=== PATIENT | female | born 2000 | race Hispanic/Latino ===

== ENCOUNTER 2023-04-13 11:30 | Emergency (ER) | payer OTHER ==
[~2023-04-13] VITALS: Ht 162.6 cm; Wt 67.9 kg
[2023-04-13] MEDS ORDERED: VALACYCLOVIR1000 MG PO (13:17)
[2023-04-13] MEDS ORDERED: HYDROCODON-ACE1 EA10 PO (13:17)
[2023-04-13 14:03] VITALS: BP 120/71
== END 2023-04-13 14:03 | disposition home or self-care (01) ==
LOC: ED 11:30
DX: A60.00 Herpesviral infection of urogenital system, unspecified (principal)
CPT/HCPCS: 87529

== ENCOUNTER 2023-04-22 22:16 | Emergency (ER) | payer OTHER ==
[~2023-04-22] VITALS: Ht 162.6 cm; Wt 68.0 kg
--- OUTSIDE RECORDS SUMMARY | ~2023-04-22 | XMS | Continuity of Care Document ---
Demographics + + + | Address | [address] | | | [place] [address] | + + + | Preferred Language | Unknown | + + + | Marital Status | Never | + + + | Confucianism Affiliation | Unknown | + + + | Race | Unknown | + + + | Ethnic Group | or | + + + Author + + + | Author | [facility] | + + + | Organization | [facility] | + + + | Address | [address] | | | [place] [address] | + + + | Phone | | + + + Care Team Providers + + + + | Care Manager Health Name | Role | Phone | + + + + Unavailable | Unavailable | + + + + Unavailable | Unavailable | + + + + Allergies No information. Encounters No information. Functional Status No information. Immunizations No information. Medications + + + + | date | description | facility | + + + + | 2023-04-13 00:00 | VALACYCLOVIR HCL | [facility] | + + + + | 2023-04-13 00:00 | HYDROCODONE | [facility] | | | BIT/ACETAMINOPHEN | | + + + + Problems + + + + | date | description | facility | + + + + | 2023-04-13 00:00 | Genital herpes simplex | [facility] | + + + + | 2023-04-13 11:32 | HERPESVIRAL INFECTION OF | [facility] | | | UROGENITAL SYSTEM, UNSPEC | | + + + + | 2023-04-13 11:32 | Rash and other nonspecific | [facility] | | | skin eruption | | + + + + Procedures No information. Results/Labs No information. Social History + + + + | date | description | facility | + + + + | 2023-04-13 00:00 | Unknown if ever smoked | [facility] | + + + + Vital Signs + + + +---------+ | date | measurement | value | units | + + + +---------+ | 2023-04-13 00:00 | BMI | 25.7 | kg/m2 | + + + +---------+ | 2023-04-13 00:00 | BP_diastolic | 71 | mmHg | + + + +---------+ | 2023-04-13 00:00 | BP_systolic | 120 | mmHg | + + + +---------+ | 2023-04-13 00:00 | heart_rate | 71 | /min | + + + +---------+ | 2023-04-13 00:00 | height_metric | 162.56 | cm | + + + +---------+ | 2023-04-13 00:00 | height_standard | 64 | in | + + + +---------+ | 2023-04-13 00:00 | o2_saturation | 100 | % | + + + +---------+ | 2023-04-13 00:00 | respiration_rate | 16 | /min | + + + +---------+ | 2023-04-13 00:00 | temperature_metric | 36.39 | C | | | | | | + + + +---------+ | 2023-04-13 00:00 | | 97.5 | F | | | temperature_standar | | | | | d | | | + + + +---------+ | 2023-04-13 00:00 | weight_metric | 67.9 | kg | + + + +---------+ | 2023-04-13 00:00 | weight_standard | 149.69 | lb | + + + +---------+"
--- OUTSIDE RECORDS SUMMARY | ~2023-04-22 | XMS | Continuity of Care Document ---
Demographics + + + | Address | [address] | | | [place] [address] | + + + | Preferred Language | Unknown | + + + | Marital Status | Never | + + + | Shinto Affiliation | Unknown | + + + | Race | Unknown | + + + | Ethnic Group | or | + + + Author + + + | Author | [facility] | + + + | Organization | [facility] | + + + | Address | [address] | | | [place] [address] | + + + | Phone | | + + + Care Team Providers + + + + | Care Tail End Rider Name | Role | Phone | + + + + Unavailable | Unavailable | + + + + Unavailable | Unavailable | + + + + Allergies No information. Encounters No information. Functional Status No information. Immunizations No information. Medications + + + + | date | description | facility | + + + + | 2023-04-13 00:00 | VALACYCLOVIR HCL | [facility] | + + + + | 2023-04-13 00:00 | HYDROCODONE | [facility] | | | BIT/ACETAMINOPHEN | | + + + + Problems + + + + | date | description | facility | + + + + | 2023-04-13 00:00 | Genital herpes simplex | [facility] | + + + + | [...] | Unknown if ever smoked | [facility] | + + + + Vital Signs [...]
[~2023-04-22 22:16] MED LIST: HYDROCODON-ACE1 EA10 PO; VALACYCLOVIR1000 MG PO
--- OUTSIDE RECORDS SUMMARY | 2023-04-22 22:19 | XMS ---
PreManage Notification: DREAD COTA [employer] Events No recent Security Events currently on file CRITERIA MET - [facility] - 2 Visits in 30 Days CARE PROVIDERS -Ayleen- Dentist: Share Holder Replaced By [facility] PHONE: [phone] Romulo has no Care Guidelines for this patient. EHany VISIT COUNT (12 MO.) 2 [facility] TOTAL 2 NOTE: Visits indicate total known visits. ED/UCC VISIT TRACKING (12 MO.) 04/22/2023 22:[address] [facility] [place] TYPE: Emergency COMPLAINT: - SKIN PROBLEM 04/13/2023 11:[address] [facility] [place] TYPE: Emergency COMPLAINT: - VAGINAL PAIN DIAGNOSES: - Herpesviral infection of urogenital system, unspecified - Rash and other nonspecific skin eruption INPATIENT VISIT TRACKING (12 MO.) No inpatient visits to display in this time frame [email or web address]
[2023-04-22] MEDS ORDERED: DOXYCYCLINE HY100 MG PO (22:44)
[2023-04-22 22:53] VITALS: BP 117/71
[2023-04-23] MEDS ORDERED: AMOX TR-K CLV1 EAC1 PO (23:17)
[2023-04-23] MEDS ORDERED: BACTRIM DS TAB1 EACH PO (23:17)
== END 2023-04-22 22:53 | disposition home or self-care (01) ==
LOC: ED 22:16
DX: L02.511 Cutaneous abscess of right hand (principal)
CPT/HCPCS: 10060; 87070; 87205; 99283-25

== ENCOUNTER 2023-04-23 22:24 | Emergency (ER) | payer OTHER ==
[~2023-04-23] VITALS: Ht 162.6 cm; Wt 67.0 kg
--- OUTSIDE RECORDS SUMMARY | ~2023-04-23 | XMS | Continuity of Care Document ---
Demographics + + + | Address | [address] | | | [place] [address] | + + + | Preferred Language | Unknown | + + + | Marital Status | Never | + + + | Voodoo Affiliation | Unknown | + + + | Race | Unknown | + + + | Ethnic Group | or | + + + Author + + + | Author | [facility] | + + + | Organization | [facility] | + + + | Address | [address] | | | [place] [address] | + + + | Phone | | + + + Care Team Providers + + + + | Care Psychologist Developmental Name | Role | Phone | + + + + Unavailable | Unavailable | + + + + Unavailable | Unavailable | + + + + Allergies and Intolerances + + + + + + | date | description | facility | reaction | severity | + + + + + + | (no date) | No Known | [facility] | (no reaction) | (no severity) | | | Allergies | | | | + + + + + + Encounters No information. Functional Status No information. Immunizations No information. Medications + + + + | date | description | facility | + + + + | 2023-04-22 00:00 | DOXYCYCLINE HYCLATE | [facility] | + + + + | 2023-04-13 00:00 | VALACYCLOVIR HCL | [facility] | + + + + | 2023-04-13 00:00 | HYDROCODONE | [facility] | | | BIT/ACETAMINOPHEN | | + + + + Problems + + + + | date | description | facility | + + + + | 2023-04-13 00:00 | Genital herpes simplex | [facility] | + + + + | 2023-04-13 11:32 | HERPESVIRAL INFECTION OF | [facility] | | | UROGENITAL SYSTEM, UNSPEC | | + + + + | 2023-04-13 11:32 | Rash and other nonspecific | [facility] | | | skin eruption | | + + + + | 2023-04-22 00:00 | Abscess of right hand | [facility] | | | excluding fingers and thumb | | | | | | + + + + Procedures No information. Results/Labs +--------+--------+ +---------+--------+---------+ | test | date | facility | value | unit | notes | +--------+--------+ +---------+--------+---------+ + + | Result panel 1 | + + + + + + + + + | | 2023-04-13 [facility] | (missing[facility] | (missing) | | (unavailable | [facility] | | | | + + + + + + + + + | Result panel 2 | + + + + + + + + + | | 2023-04-13 | [facility] Detected | (missing) | (missing) | | (unavailable | [facility]:07 [facility] | | | | + + + + + + + + + | Result panel 3 | + + + + + + + + + | | 2023-04-13 | [facility] | Not | (missing) | (missing) | | (unavailable | [facility]15:07 [facility] Detected | | | | ) | | [facility] | | | | + + + + + + + Social History + + + + | date | description | facility | + + + + | 2023-04-13 00:00 | Unknown if ever smoked | [facility] | + + + + | 2023-04-22 00:00 | Unknown if ever smoked | [facility] | + + + + Vital Signs [...] 149.69 | lb | + + + +---------+ | 2023-04-22 00:00 | BMI | 25.7 | kg/m2 | + + + +---------+ | 2023-04-22 00:00 | BP_diastolic | 71 | mmHg | + + + +---------+ | 2023-04-22 00:00 | BP_systolic | 117 | mmHg | + + + +---------+ | 2023-04-22 00:00 | heart_rate | 87 | /min | + + + +---------+ | 2023-04-22 00:00 | height_metric | 162.56 | cm | + + + +---------+ | 2023-04-22 00:00 | height_standard | 64 | in | + + + +---------+ | 2023-04-22 00:00 | o2_saturation | 100 | % | + + + +---------+ | 2023-04-22 00:00 | respiration_rate | 14 | /min | + + + +---------+ | 2023-04-22 00:00 | temperature_metric | 36.61 | C | | | | | | + + + +---------+ | 2023-04-22 00:00 | | 97.9 | F | | | temperature_standar | | | | | d | | | + + + +---------+ | 2023-04-22 00:00 | weight_metric | 68 | kg | + + + +---------+ | 2023-04-22 00:00 | weight_standard | 149.91 | lb | + + + +---------+"
--- OUTSIDE RECORDS SUMMARY | ~2023-04-23 | XMS | Continuity of Care Document ---
Demographics + + + | Address | [address] | | | [place] [address] | + + + | Preferred Language | Unknown | + + + | Marital Status | Never | + + + | Episcopal Affiliation | Unknown | + + + | Race | Unknown | + + + | Ethnic Group | or | + + + Author + + + | Author | [facility] | + + + | Organization | [facility] | + + + | Address | [address] | | | [place] [address] | + + + | Phone | | + + + Care Team Providers + + + + | Care Ultrasonographer Name | Role | Phone | + [...] | 2023-04-22 00:00 | DOXYCYCLINE HYCLATE | [facility] | + + + + | 2023-04-13 00:00 | VALACYCLOVIR HCL | [facility] | + + + + | 2023-04-13 00:00 | HYDROCODONE | [facility] | | | BIT/ACETAMINOPHEN | | + + + + Problems + + + + | date | description | facility | + + + + | 2023-04-13 00:00 | Genital herpes simplex | [facility] | + + + + | 2023-04-13 11:32 | HERPESVIRAL INFECTION OF | [facility] | | | UROGENITAL SYSTEM, UNSPEC | | + + + + | 2023-04-13 11:32 | Rash and other nonspecific | [facility] | | | skin eruption | | + + + + | 2023-04-22 00:00 | Abscess of right hand | [facility] | | | excluding fingers [...] 00:00 | Unknown if ever smoked | [facility] | + + + + | 2023-04-22 00:00 | Unknown if ever smoked | [facility] | + + + + [...]
[~2023-04-23 22:24] MED LIST changes: +DOXYCYCLINE HY100 MG PO
--- OUTSIDE RECORDS SUMMARY | 2023-04-23 22:27 | XMS ---
PreManage Notification: DREAD COTA Security [employer] Events No recent Security Events currently on file CRITERIA MET - [facility] - 2 Visits in 30 Days CARE PROVIDERS -Ayleen- Dentist: [facility] PHONE: [phone] Romulo has no Care Guidelines for this patient. EHany VISIT COUNT (12 MO.) 3 [facility] TOTAL 3 NOTE: Visits indicate total known visits. ED/UCC VISIT TRACKING (12 MO.) 04/23/2023 22:25 [facility] TYPE: Emergency COMPLAINT: - BUMP ON HER HAND 04/22/2023 22:17 [facility] TYPE: Emergency COMPLAINT: - SKIN PROBLEM 04/13/2023 11:32 [facility] TYPE[facility] Emergency COMPLAINT: - VAGINAL PAIN DIAGNOSES: - Herpesviral infection of urogenital system, unspecified - Rash and other nonspecific skin eruption INPATIENT VISIT TRACKING (12 MO.) No inpatient visits to display in this time frame [email or web address]
[2023-04-23] MEDS ORDERED: AMOX TR-K CLV1 EAC1 PO (23:17)
[2023-04-23] MEDS ORDERED: BACTRIM DS TAB1 EACH PO (23:17)
[2023-04-23 23:26] VITALS: BP 105/83
== END 2023-04-23 23:26 | disposition home or self-care (01) ==
LOC: ED 22:24
DX: L02.511 Cutaneous abscess of right hand (principal); Z79.899 Other long term (current) drug therapy
CPT/HCPCS: 99283; A9270

== ENCOUNTER 2024-02-01 00:36 | Inpatient (IN) | payer OTHER ==
[~2024-02-01 00:36] MED LIST changes: +AMOX TR-K CLV1 EAC1 PO; +BACTRIM DS TAB1 EACH PO; +CALCIUM CARBONATE 500 MG CHEW PO PRN; +LACTATED RINGER'S 1,000 ML IV SCH; +MAGNESIUM HYDROXIDE/AL HYDROX 30 ML CUP PO PRN; +PENICILLIN G POTASSIUM 5 MUNITS/110 ML PIGGYBACK IV ONE; +miSOPROStoL 25 MCG TAB PV SCH
[2024-02-01] MEDS ORDERED: OXYTOCIN/DEXTROSE 5% 20 UNITS/100 ML BAG IV SCH (01:45)
[2024-02-01] MEDS ORDERED: CALCIUM CARBONATE 500 MG CHEW PO PRN (01:45)
[2024-02-01] MEDS ORDERED: MAGNESIUM HYDROXIDE/AL HYDROX 30 ML CUP PO PRN (01:45)
[2024-02-01 01:47] LABS: HEMATOCRIT 34.2 % (35.0-50.0); HEMOGLOBIN 11.9 g/dL (12.0-18.0); MCH 31.2 (27-36); MCHC 34.8 g/dl (30-36); MCV 89.6 fl (81-99); RBC 3.82 M/ul (4.3-5.7); RDW 15.2 (10.5-15.0)
[2024-02-01 02:18] LABS: ABO A; ANTIBODY SCREEN NEGATIVE; RH POSITIVE
[2024-02-01] MEDS ORDERED: PENICILLIN G POTASSIUM 2.5 MUNITS in DEXTROSE 5% 100 ML IV SCH ×3 (04:00→18:00)
[2024-02-01] MEDS ORDERED: miSOPROStoL 25 MCG TAB PV SCH (08:00)
[2024-02-01] MEDS ORDERED: PENICILLIN G POTASSIUM 5 MUNITS/110 ML PIGGYBACK IV ONE ×2 (08:15→13:45)
[2024-02-01 08:17] VITALS: BP 132/87
[2024-02-01 09:42] LABS: AMPHETAMINES, URINE NEGATIVE (NEGATIVE); BARBITURATES, URINE NEGATIVE (NEGATIVE); BENZODIAZEPINE, URINE NEGATIVE (NEGATIVE); BUPRENORPHINE, URINE NEGATIVE (NEGATIVE); CANNABINOID, URINE POSITIVE (NEGATIVE); COCAINE, URINE NEGATIVE (NEGATIVE); ECSTASY, URINE NEGATIVE (NEGATIVE); FENTANYL, URINE NEGATIVE (NEGATIVE); METHADONE, URINE NEGATIVE (NEGATIVE); OPIATES, URINE NEGATIVE (NEGATIVE); OXYCODONE, URINE NEGATIVE (NEGATIVE); PHENCYCLIDINE, URINE NEGATIVE (NEGATIVE)
--- NOTE | 2024-02-01 15:41 | PR ---
[facility] [address] [place], [place] [address] Signed Progress Notes IP Datetime Report Generated by CPN: 02/01/2024 15:41 PROGRESS NOTES: [id number] Impression: Normal Progression of Labor; Reassuring Heart Rate Procedures: Artificial ROM; Sterile Vag Exam Plan: Continue Present Management VITAL SIGNS: [id number] Vital Signs: Reviewed; Within Normal Limits EXAM: [id number] Dilatation: 2.5 Effacement: 50 Station: -3 Contractions: q 1-2 MEMBRANES: [id number] Pooling: Negative Comments: Pt seen and examined. Doing well. Contractions 1-2 minutes mild. Discussed AROM and pt desires. AROM easily performed for moderate amount of clear fluid. FETUS A: [id number] FHR Baseline: 145 Variability: Moderate 6-25bpm Decelerations: None FHR Category: Category I Presentation: Vertex Comments on Fetus A: No evidence of metabolic acidosis FETUS B: [id number] Signing Physician: Liliane Arora DO Copies: ~ *Electronically Signed* 02/01/24 1541 LILIANE ARORA (ELENI) DO PATIENT NAME: VIRELAS KOKO,DREAD PROGRESS NOTE DATE OF : 00 PHYSICIAN: LILIANE ARORA) DO RPT #: [id number] REPORT IS CONFIDENTIAL AND NOT TO BE RELEASED WITHOUT AUTHORIZATION
--- NOTE | 2024-02-01 18:28 | PR ---
[facility] [address] [place], [place] [address] Signed Progress Notes IP Datetime Report Generated by CPN: 02/01/2024 18:28 PROGRESS NOTES: [id number] Impression: Normal Progression of Labor; Reassuring Heart Rate Procedures: Sterile Vag Exam Plan: Continue Present Management Other Plans: PreE Labs VITAL SIGNS: [id number] Vital Signs: Reviewed; Within Normal Limits EXAM: [id number] Dilatation: 3.0 Effacement: 70 Station: -3 Contractions: q 1-3 min MEMBRANES: [id number] Pooling: Negative Comments: Pt seen and examined. Contractions increasing in frequency and intensity. Leaking clear fluid. Mildly elevated BPs. Will check preE labs. Continue expectant management. FETUS A: [id number] FHR Baseline: 145 Variability: Moderate 6-25bpm Decelerations: None FHR Category: Category I Presentation: Vertex Comments on Fetus A: No evidence of metabolic acidosis FETUS B: [id number] Signing Physician: Liliane Arora DO Copies: ~ *Electronically Signed* 02/01/24 1828 LILIANE ARORA (ELENI) DO PATIENT NAME: DREAD COTA PROGRESS NOTE DATE OF : 00 PHYSICIAN: LILIANE ARORA (ELENI) DO RPT #: [id number] REPORT IS CONFIDENTIAL AND NOT TO BE RELEASED WITHOUT AUTHORIZATION
[2024-02-01 19:35] LABS: HEMATOCRIT 34.4 % (35.0-50.0); HEMOGLOBIN 11.3 g/dL (12.0-18.0); MCH 29.9 (27-36); MCHC 32.9 g/dl (30-36); MCV 90.8 fl (81-99); RBC 3.79 M/ul (4.3-5.7); RDW 15.4 (10.5-15.0)
[2024-02-01 19:49] LABS: ALBUMIN 2.5 g/dL (3.4-5.0); ALBUMIN/GLOBULIN RATIO 0.68 (1.1-2.4); ANION GAP 11.6 (7-21); BILIRUBIN, TOTAL 0.2 ng/dL (0.2-1.0); BUN/CREATININE RATIO 15.38 (6.0-28.6); CALCIUM 8.6 mg/dL (8.5-10.1); CREATININE, SERUM 0.65 mg/dL (0.55-1.02); POTASSIUM 3.6 mmol/L (3.5-5.1); PROTEIN, TOTAL 6.2 g/dL (6.4-8.2)
[2024-02-01 19:58] LABS: CREATININE, RANDOM URINE 177.59 mg/dL (NOT ESTABLISHED); PROTEIN/CREATININE RATIO 0.27 mg/mg (0.010-0.107)
[2024-02-02] MEDS ORDERED: OXYTOCIN/0.9 % SODIUM CHLORIDE 500 ML IV SCH (03:15)
--- NOTE | 2024-02-02 07:29 | PR ---
[facility] [address] [place], [place] [address] Signed Progress Notes IP Datetime Report Generated by CPN: 02/02/2024 07:28 PROGRESS NOTES: [id number] Impression: Normal Progression of Labor; Reassuring Heart Rate Procedures: Intrauterine Pressure Catheter; Scalp Electrode; Sterile Vag Exam Plan: Continue Present Management Other Plans: PreE Labs Other Informed Consents: Reviewed anticipated course of labor VITAL SIGNS: S0577720 Vital Signs: Reviewed; Within Normal Limits EXAM: [id number] Dilatation: 4.5 Effacement: 95 Station: -2 Contractions: q 4-6 min MEMBRANES: [id number] Pooling: Negative Comments: Pt seen and examined. Slow cervical change primarily through effacement noted overnight. Low dose pitocin was started overnight. Now pt 4.5/90. IUPC and FSE placed w/out difficulty after verbal consent obtained. Will titrate pitocin. Reviewed adequate pelvis and anticipted weight. Pt to consider epidural. Reviewed mildly elevated BPs w/ normal labs yesterday. No evidence of intraamniotic infection. Continues on PCN prophylaxis. All questions answered. Pt desires to continue w/ trial of vaginal delivery FETUS A: [id number] FHR Baseline: 145 Variability: Moderate 6-25bpm Decelerations: None FHR Category: Category I Presentation: Vertex Comments on Fetus A: No evidence of metabolic acidosis FETUS B: [id number] Signing Physician: Liliane Arora DO Copies: ~ *Electronically Signed* 02/02/24727 LILIANE ARORA (ELENI) DO PATIENT NAME: TISHA SUTHERLANDDREAD PROGRESS NOTE DATE OF : 00 PHYSICIAN: LILIANE ARORA (JD) DO RPT #: [id number] REPORT IS CONFIDENTIAL AND NOT TO BE RELEASED WITHOUT AUTHORIZATION
[2024-02-02] MEDS ORDERED: ROPIVACAINE 0.2% 200 ML BAG EPIDURAL SCH (08:45)
[2024-02-02] MEDS ORDERED: LACTATED RINGER'S 500 ML IV PRN (08:45)
[2024-02-02] MEDS ORDERED: LACTATED RINGER'S 2,000 ML IV ONE (08:45)
[2024-02-02] MEDS ORDERED: ePHEDrine sulfate 5 MG/ML SYRINGE IV PRN (08:45)
--- NOTE | 2024-02-02 11:20 | PR ---
[facility] [address] [place], [place] [address] Signed Progress Notes IP Datetime Report Generated by JOSSE: 02/02/2024 11:20 PROGRESS NOTES: [id number] Impression: Normal Progression of Labor; Reassuring Heart Rate Other Impressions: Slow progression of labor Procedures: Intrauterine Pressure Catheter; Scalp Electrode; Sterile Vag Exam Other Procedures: Strip review- pt sleeping Plan: Continue Present Management Other Plans: PreE Labs Other Informed Consents: Reviewed anticipated course of labor VITAL SIGNS: S9565580 Vital Signs: Reviewed; Within Normal Limits EXAM: [id number] Dilatation: 4.5 Effacement: 90 Station: -2 Contractions: q 4 min MEMBRANES: [id number] Pooling: Negative Comments: Pt seen and evaluated. Sleeping now that she is comfortable w/ epidural. Slow cervical change. Contractions now adequate. FHT reassuring. Continue augmentation. Reevaluate at next check. FETUS A: [id number] FHR Baseline: 145 Variability: Moderate 6-25bpm Decelerations: Variable FHR Category: Category II Presentation: Vertex Comments on Fetus A: No evidence of metabolic acidosis FETUS B: [id number] Signing Physician: Liliane Arora DO Copies: ~ *Electronically Signed* 02/02/24 1120 LILIANE ARORA (ELENI) DO PATIENT NAME: DREAD COTA PROGRESS NOTE DATE OF : 00 PHYSICIAN: LILIANE ARORA DO (JD) RPT #: [id number] REPORT IS CONFIDENTIAL AND NOT TO BE RELEASED WITHOUT AUTHORIZATION
--- NOTE | 2024-02-02 13:37 | PR ---
[facility] [address] [place], [place] [address] Signed Progress Notes IP Datetime Report Generated by CPN: 02/02/2024 13:37 PROGRESS NOTES: [id number] Impression: Reassuring Heart Rate Other Impressions: Slow progression of labor Procedures: Sterile Vag Exam Other Procedures: Strip review- pt sleeping Plan: Continue Present Management Other Plans: PreE Labs Other Informed Consents: Reviewed anticipated course of labor VITAL SIGNS: H2024857 Vital Signs: Reviewed; Within Normal Limits EXAM: [id number] Dilatation: 5.0 Effacement: 95 Station: -2 Contractions: q 2-3 min MEMBRANES: [id number] Pooling: Negative Comments: Pt seen and examined. Cervical change noted. Reassuring FHT. Reviewed labor progess and close monitoring. Nearing 24 hr of ROM. No sign of intraamniotic infection FETUS A: [id number] FHR Baseline: 145 Variability: Minimal - >Undetectable to <=5bpm Decelerations: None FHR Category: Category II Presentation: Vertex Comments on Fetus A: No evidence of metabolic acidosis FETUS B: [id number] Signing Physician: Liliane Arora DO Copies: ~ *Electronically Signed* 02/02/24 1337 LILIANE ARORA (ELENI) DO PATIENT NAME: DREAD COTA PROGRESS NOTE DATE OF : 00 PHYSICIAN: LILIANE ARORA (JD) DO RPT #: [id number] REPORT IS CONFIDENTIAL AND NOT TO BE RELEASED WITHOUT AUTHORIZATION
[2024-02-02] MEDS ORDERED: SODIUM CHLORIDE 0.9% 20 ML IV ONE (15:53)
[2024-02-02] MEDS ORDERED: fentaNYL citrate 100 MCG/2 ML VIAL ONE ×3 (15:53→23:00)
[2024-02-02] MEDS ORDERED: Ropivacaine HCl 0.5% 30 ML VIAL ONE (15:53)
--- NOTE | 2024-02-02 16:24 | PR ---
[facility] [address] [place], [place] [address] Signed Progress Notes IP Datetime Report Generated by CPN: 02/02/2024 16:24 PROGRESS NOTES: [id number] Impression: Normal Progression of Labor; Reassuring Heart Rate Other Impressions: Slow progression of labor Procedures: Sterile Vag Exam Other Procedures: Strip review- pt sleeping Plan: Continue Present Management Other Plans: PreE Labs Other Informed Consents: Reviewed anticipated course of labor VITAL SIGNS: E1489304 Vital Signs: Reviewed; Within Normal Limits EXAM: [id number] Dilatation: 6.0 Effacement: 90 Station: -2 Contractions: q 4-5cm MEMBRANES: [id number] Pooling: Negative Comments: Pt seen and evaluated. Doing well. Epidural rebolused by anesthesia. Reviewed slow progress w/ cervix and pt reports some fatigue. Reviewed vertex position. Will continue position changes. Afebrile. Will continue to monitor FETUS A: [id number] FHR Baseline: 145 Variability: Minimal - >Undetectable to <=5bpm Decelerations: None FHR Category: Category II Presentation: Vertex Comments on Fetus A: No evidence of metabolic acidosis FETUS B: [id number] Signing Physician: Liliane Arora DO Copies: ~ *Electronically Signed* 02/02/24 3408 LILIANE ARORA (ELENI) DO PATIENT NAME: DREAD COTA PROGRESS NOTE DATE OF : 00 PHYSICIAN: LILIANE ARORA (JD) DO RPT #: [id number] REPORT IS CONFIDENTIAL AND NOT TO BE RELEASED WITHOUT AUTHORIZATION
--- NOTE | 2024-02-02 22:18 | PR ---
[facility] [address] [place], [place] [address] Signed Progress Notes IP Datetime Report Generated by CPN: 02/02/2024 22:17 PROGRESS NOTES: [id number] Impression: Normal Progression of Labor Other Impressions: Noted prolonged decel w/ exam Procedures: Sterile Vag Exam Other Procedures: Strip review- pt sleeping Plan: Continue Present Management Other Plans: See notes Informed Consent Obtain: Vaginal Delivery; Section Delivery Other Informed Consents: Reviewed anticipated course of labor VITAL SIGNS: [id number] Vital Signs: Reviewed; Within Normal Limits EXAM: [id number] Dilatation: 9.5 Effacement: 95 Station: -2 Contractions: q 3-5 min MEMBRANES: [id number] Pooling: Negative Comments: Pt seen and examined. 9.5cm. Attempted to gently reduce remaining cervix w/ contraction and pushing but unsuccess. After completion of pushing prolonged deceleration noted that resolved w/ patient repositioning and d/c pitocin. Will have anesthesia evaluate pt for epidural bolus as pt is uncomfortable, and will attempt pushing and if not reassuring will proceed with primary C/S. Pt and family were explained plan, reviewed strip and deceleration, and understand agree w/ plan of care. All questions answered. FETUS A: [id number] FHR Baseline: 145 Variability: Minimal - >Undetectable to <=5bpm Decelerations: Prolonged FHR Category: Category II Presentation: Vertex Comments on Fetus A: No evidence of metabolic acidosis FETUS B: [id number] Signing Physician: Liliane Arora DO *Electronically Signed* 02/02/24 5003 LILIANE ARORA) DO PATIENT NAME: CLIFFORDGISSELLE DREAD S[place]HERLAND PROGRESS NOTE DATE OF : 00 PHYSICIAN: LILIANE ARORA) DO RPT #: [id number] REPORT IS CONFIDENTIAL AND NOT TO BE RELEASED WITHOUT AUTHORIZATION
[2024-02-02] MEDS ORDERED: LIDOCAINE 2% W/ EPI 1:100,000 20 ML VIAL ONE (22:59)
[2024-02-02] MEDS ORDERED: TRANEXAMIC ACID IN NACL,ISO-OS 100 ML IV ONE (23:09)
--- NOTE | 2024-02-02 23:39 | PR ---
[facility] [address] [place], [place] [address] Signed Progress Notes IP Datetime Report Generated by CPN: 02/02/2024 23:39 PROGRESS NOTES: [id number] Impression: Normal Progression of Labor; Reassuring Heart Rate Other Impressions: Noted prolonged decel w/ exam Procedures: Sterile Vag Exam Other Procedures: Pushing w/ contractions Plan: Continue Present Management; Anticipate Vaginal Delivery Other Plans: See notes Informed Consent Obtain: Vaginal Delivery Other Informed Consents: Reviewed anticipated course of labor VITAL SIGNS: [id number] Vital Signs: Reviewed; Within Normal Limits EXAM: [id number] Dilatation: 10.0 Effacement: 95 Station: -2 Contractions: q 7 minutes MEMBRANES: [id number] Pooling: Negative Comments: Pt seen and examined. Pushing w/ contractions. Complete. Afebrile. Variable decelerations noted and FHT reassuring. Will restart pitocin and push w/ contractions. All questions answered FETUS A: [id number] FHR Baseline: 145 Variability: Minimal - >Undetectable to <=5bpm Decelerations: Variable FHR Category: Category II Presentation: Vertex Comments on Fetus A: No evidence of metabolic acidosis FETUS B: [id number] Signing Physician: Liliane Arora DO Copies: ~ *Electronically Signed* 02/02/24 2875 LILIANE ARORA (ELENI) DO PATIENT NAME: DREAD COTA PROGRESS NOTE DATE OF : 00 PHYSICIAN: LILIANE ARORA (JD) DO RPT #: [id number] REPORT IS CONFIDENTIAL AND NOT TO BE RELEASED WITHOUT AUTHORIZATION
[2024-02-03] MEDS ORDERED: ondansetron HCL 4 MG/2 ML VIAL IV ONE (02:00)
[2024-02-03] MEDS ORDERED: OXYTOCIN/0.9 % SODIUM CHLORIDE 500 ML IV SCH (02:30)
[2024-02-03] MEDS ORDERED: HYDROCORTISONE ACETATE 25 MG SUPP PR PRN (02:30)
[2024-02-03] MEDS ORDERED: HYDROCODONE/ACETA 5/325 TAB PO PRN (02:30)
[2024-02-03] MEDS ORDERED: BENZOCAINE 60 ML AEROSOL TOP PRN (02:30)
[2024-02-03] MEDS ORDERED: MAGNESIUM HYDROXIDE 30 ML UDC PO PRN (02:30)
[2024-02-03] MEDS ORDERED: ACETAMINOPHEN 325 MG TAB PO PRN (02:30)
[2024-02-03] MEDS ORDERED: CALCIUM CARBONATE 500 MG CHEW PO PRN (02:30)
[2024-02-03] MEDS ORDERED: WITCH HAZEL/GLYCERIN 1 EA PAD TOP PRN (02:30)
[2024-02-03] MEDS ORDERED: MAGNESIUM HYDROXIDE/AL HYDROX 30 ML CUP PO PRN (02:30)
[2024-02-03] MEDS ORDERED: OXYCODONE/APAP 5/325 TAB PO PRN (02:30)
[2024-02-03] MEDS ORDERED: OXYCODONE HCL 5 MG TAB PO PRN (02:30)
[2024-02-03] MEDS ORDERED: IBUPROFEN 600 MG TAB PO PRN (02:30)
[2024-02-03] MEDS ORDERED: TRANEXAMIC ACID IN NACL,ISO-OS 1,000 MG/100 ML PIGGYBACK IV ONE (02:30)
[2024-02-03] MEDS ORDERED: OXYTOCIN/DEXTROSE 5% 20 UNITS/100 ML BAG IV SCH (03:45)
[2024-02-03 06:24] LABS: HEMATOCRIT 29.6 % (35.0-50.0); MCH 30.3 (27-36); MCHC 33.7 g/dl (30-36); PLATELET COUNT 173 K/uL (140-440); RBC 3.28 M/ul (4.3-5.7); RDW 15.2 (10.5-15.0)
[2024-02-03] MEDS ORDERED: FERROUS SULFATE 325 MG TAB PO SCH (08:00)
[2024-02-03] MEDS ORDERED: SENNOSIDES/DOCUSATE 1 EA TAB PO SCH (09:00)
--- NOTE | 2024-02-03 17:32 | PR ---
[facility] [address] [facility] [place], [place] [address] Signed PP Progress Notes Datetime Report Generated by CPN: 02/03/2024 17:31 SUBJECTIVE: [id number] Pain: Within Normal Limits Nausea/Vomiting: Denies Flatus: Yes Bowel Movement: No Vital Signs: [id number] Vital Signs: Reviewed; Within Normal Limits Cardiovascular: Normal Respiratory: Normal Abdomen/Uterus: Normal Lochia: Normal Vulva/Perineum: Not Done Breasts: Not Done CVA Tenderness: Normal Extremities: Normal Incision: Not Applicable Progress: Normal Exam Comments: Fundus firm U-2 nontender. w/ RN support IMPRESSION/PLAN/PROCEDURES: [id number] Impression: Normal Progression Plan: Continue Present Management Progress Notes: Pt seen and examined. Doing well. Ambulating, voiding, and tolerating full diet. Pain and lochia minimal. w/ support. No concerns. Desires d/c home tomorrow. Will consider Signing Physician: Liliane Arora DO Copies: ~ *Electronically Signed* 02/03/24 8011 LILIANE ARORA (ELENI) DO PATIENT NAME: CLIFFORDDREAD THOMSON PROGRESS NOTE DATE OF : 00 PHYSICIAN: LILIANE ARORA) DO RPT #: [id number] REPORT IS CONFIDENTIAL AND NOT TO BE RELEASED WITHOUT AUTHORIZATION
[2024-02-04 05:38] LABS: BASOPHILS 0.2 % (0-2); EOSINOPHILS 1.6 % (0-6); HEMATOCRIT 26.3 % (35.0-50.0); LYMPHOCYTES 14.3 % (24-44); MCH 30.6 (27-36); MCHC 34.1 g/dl (30-36); MCV 89.7 fl (81-99); MONOCYTES 7.1 % (0-12); NEUTROPHILS 76.8 % (39-80); PLATELET COUNT 179 K/uL (140-440); RBC 2.93 M/ul (4.3-5.7); RDW 15.7 (10.5-15.0)
--- NOTE | 2024-02-04 08:18 | PR ---
[facility] [address] [place], [place] [address] Signed PP Progress Notes Datetime Report Generated by CPN: 02/04/2024 08:18 SUBJECTIVE: [id number] Pain: Within Normal Limits Nausea/Vomiting: Denies Flatus: Yes Bowel Movement: No Vital Signs: [id number] Vital Signs: Reviewed; Within Normal Limits Cardiovascular: Normal Respiratory: Normal Abdomen/Uterus: Normal Lochia: Normal Vulva/Perineum: Not Done Breasts: Not Done CVA Tenderness: Normal Extremities: Normal Incision: Not Applicable Progress: Normal Exam Comments: Fundus firm U-2 nontender. IMPRESSION/PLAN/PROCEDURES: [id number] Impression: Normal Progression Plan: Discharge Progress Notes: Pt seen and examined. Doing well. Ambulating, voiding, and tolerating full diet. Pain and lochia minimal. . No concerns. Desires d/c home. Reviewed d/c instructions and medications. Undecided on contraception and we reviewed options. All questions answered. Signing Physician: Liliane Arora DO Copies: ~ *Electronically Signed* 02/04/2418 LILIANE ARORA (ELENI) DO PATIENT NAME: DREAD COTA PROGRESS NOTE DATE OF : 00 PHYSICIAN: LILIANE ARORA) DO RPT #: [id number] REPORT IS CONFIDENTIAL AND NOT TO BE RELEASED WITHOUT AUTHORIZATION
== END 2024-02-04 15:20 | disposition home or self-care (01) | DRG 807 ==
LOC: FBC 00:36
PROVIDERS: ADMIT Obstetrics & Gynecology; ATTEND Obstetrics & Gynecology
PROC: 10E0XZZ Delivery of Products of Conception, External Approach (ICD-10-PCS; principal; 2024-02-03)
PROC: 0KQM0ZZ Repair Perineum Muscle, Open Approach (ICD-10-PCS; 2024-02-03)
PROC: 3E0R3BZ Introduction of Anesthetic Agent into Spinal Canal, Percutaneous Approach (ICD-10-PCS; 2024-02-03)
PROC: 00HU33Z Insertion of Infusion Device into Spinal Canal, Percutaneous Approach (ICD-10-PCS; 2024-02-03)
PROC: 10907ZC Drainage of Amniotic Fluid, Therapeutic from Products of Conception, Via Natural or Artificial Opening (ICD-10-PCS; 2024-02-03)
DX: O48.0 Post-term pregnancy (principal); Z37.0 Single live birth; O99.824 Streptococcus B carrier state complicating childbirth; Z3A.41 41 weeks gestation of pregnancy; O70.1 Second degree perineal laceration during delivery; O77.0 Labor and delivery complicated by meconium in amniotic fluid; O76 Abnormality in fetal heart rate and rhythm complicating labor and delivery
CPT/HCPCS: 01960; 36415; 80053; 80307; 82570; 84156; 84550; 85025; 85027; 85060; 86850; 86900; 86901; A9270; J2405; J2540; J2590; J2795; J3010; J7121